=== PATIENT | female | born 1995 | race Caucasian/White ===

== ENCOUNTER 2020-08-18 08:26 | Inpatient (IN) ==
[2020-08-18] MEDS ORDERED: FAMOTIDINE 20 MG/2 ML VIAL IV ONE (08:31)
[2020-08-18] MEDS ORDERED: ceFAZolin 2,000 MG in PREMIX 1 EACH IV ONE (08:31)
[2020-08-18] MEDS ORDERED: CITRIC ACID/SODIUM CITRATE 30 ML UDCUP PO ONE (08:31)
[2020-08-18] MEDS ORDERED: OXYTOCIN/LR 30 UNIT/1,000 ML BAG IV ONE (08:33)
[2020-08-18] MEDS ORDERED: OXYTOCIN 10 UNIT/ML VIAL IM ONE (08:33)
[2020-08-18] MEDS ORDERED: LACTATED RINGERS 1,000 ML IV ONE (08:34)
[2020-08-18] MEDS ORDERED: LACTATED RINGERS 1,000 ML IV SCH (09:00)
[2020-08-18 09:06] LABS: Basophils % 0.1 % (0.0-0.8); Eosinophils # 0.1 10*3/uL (0.0-0.87); Eosinophils % 1.1 % (0.00-10.9); Hematocrit 38.4 VOL% (35.7-47.0); Hemoglobin 12.5 GM/DL (12.0-16.0); Immature Granulocytes % 0.6 %; Immature Granulocytes Absolute 0.07 #; Lymphocytes # 3.1 10*3/uL (1.4-4.0); Mean Corpuscular HGB Conc 32.6 GM/DL (32-36); Mean Corpuscular Volume 90.6 FL (87-102); Mean Platelet Volume 9.8 FL (9.6-12.0); Monocytes % 8.5 % (1.7-12.7); Neutrophils % 61.7 % (38.7-73.9); Platelet Count 371 T/CUMM (130-400); Red Blood Count 4.24 MC/CUMM (3.8-5.5); Red Cell Distribution Width 15.7 % (9.3-17.3); White Blood Count 10.9 T/CUMM (4-12)
[2020-08-18] MEDS ORDERED: ONDANSETRON 4 MG/2 ML VIAL IV ONE (09:30)
[2020-08-18] MEDS ORDERED: MEPERIDINE 50 MG/1 ML VIAL IV ONE (09:30)
[2020-08-18 12:52] LABS: HIV Antigen/Antibody Result Nonreactive (Nonreactive); Hepatitis B Surface Ag Quant < 0.10 Index; Hepatitis B Surface Ag Result Negative (Negative)
[2020-08-18] MEDS ORDERED: DEXAMETHASONE 4 MG/1 ML VIAL ONE (14:00)
[2020-08-18] MEDS ORDERED: BUPIVACAINE MPF 0.5% /EPI 30 ML VIAL ONE ×2 (14:00→14:30)
[2020-08-18] MEDS ORDERED: BUPIVACAINE SPINAL 0.75% 2 ML AMP SPINAL ONE ×2 (14:00→14:30)
[2020-08-18] MEDS ORDERED: fentaNYL 100 MCG/2 ML VIAL ONE (14:00)
[2020-08-18] MEDS ORDERED: ONDANSETRON 4 MG/2 ML VIAL ONE (14:00)
[2020-08-18] MEDS ORDERED: MORPHINE 10 MG/10 ML VIAL ONE (14:00)
[2020-08-18] MEDS ORDERED: PHENYLEPHRINE 1 MG/10 ML SYRINGE IV ONE (14:00)
[2020-08-18] MEDS ORDERED: GLYCOPYRROLATE 0.4 MG/2 ML VIAL ONE (14:19)
[2020-08-18] MEDS ORDERED: BUPIVACAINE MPF 0.25% 30 ML VIAL ONE ×2 (14:30→14:31)
[2020-08-18 14:58] LABS: Cord Arterial Blood HCO3 24.7 MMOL/L
[2020-08-18 15:01] LABS: Cord Venous Blood HCO3 25.2 MMOL/L; Cord Venous Blood PCO2 49.5 MMHG
[2020-08-18 15:04] LABS: Cord Venous Blood PO2 18.8 MMHG
[2020-08-18] MEDS ORDERED: OXYTOCIN/LR 20 UNIT/1,000 ML BAG IV ONE (17:26)
[2020-08-18] MEDS: oxyCODONE/ACETAMINOPHEN 5-325 MG TABLET PO PRN (19:43)
[2020-08-18] MEDS ORDERED: SIMETHICONE CHEW 80 MG TABLET PO PRN (19:49)
[2020-08-18] MEDS ORDERED: ACETAMINOPHEN 325 MG TABLET PO PRN (19:49)
[2020-08-18] MEDS ORDERED: RHO(D) IMMUNE GLOBULIN 300 MCG SYRINGE IM ONE (19:49)
[2020-08-18] MEDS: DOCUSATE SODIUM 100 MG CAPSULE PO SCH (20:39)
[2020-08-18] MEDS: ceFAZolin 1,000 MG in SYRINGE 1 EACH IV SCH (21:53)
[2020-08-18 22:49] LABS: Basophils % 0.1 % (0.0-0.8); Hematocrit 30.2 VOL% (35.7-47.0); Immature Granulocytes % 0.7 %; Immature Granulocytes Absolute 0.14 #; Lymphocytes # 1.7 10*3/uL (1.4-4.0); Lymphocytes % 8.6 % (21.3-54.2); Mean Corpuscular HGB Conc 33.1 GM/DL (32-36); Mean Corpuscular Volume 89.9 FL (87-102); Monocytes % 5.4 % (1.7-12.7); Neutrophils % 85.2 % (38.7-73.9); Platelet Count 307 T/CUMM (130-400); Red Blood Count 3.36 MC/CUMM (3.8-5.5); Red Cell Distribution Width 15.6 % (9.3-17.3); White Blood Count 19.7 T/CUMM (4-12)
[2020-08-19] MEDS ORDERED: diphenhydrAMINE CAP 25 MG CAPSULE PO PRN (01:40)
[2020-08-19] MEDS: ceFAZolin 1,000 MG in SYRINGE 1 EACH IV SCH (06:01)
[2020-08-19] MEDS: IBUPROFEN 800 MG TABLET PO PRN ×3 (06:04→20:15)
[2020-08-19] MEDS: oxyCODONE/ACETAMINOPHEN 5-325 MG TABLET PO PRN ×2 (06:18→18:22)
[2020-08-19 06:21] LABS: Basophils % 0.1 % (0.0-0.8); Eosinophils # 0.1 10*3/uL (0.0-0.87); Eosinophils % 0.3 % (0.00-10.9); Hematocrit 27.9 VOL% (35.7-47.0); Hemoglobin 9.6 GM/DL (12.0-16.0); Immature Granulocytes % 0.5 %; Lymphocytes % 16.3 % (21.3-54.2); Mean Corpuscular HGB Conc 34.4 GM/DL (32-36); Mean Platelet Volume 9.6 FL (9.6-12.0); Neutrophils % 74.8 % (38.7-73.9); Platelet Count 276 T/CUMM (130-400); Red Blood Count 3.17 MC/CUMM (3.8-5.5); Red Cell Distribution Width 15.5 % (9.3-17.3); White Blood Count 18.3 T/CUMM (4-12)
[2020-08-19] MEDS: METOCLOPRAMIDE 10 MG TABLET PO SCH ×3 (08:05→23:33)
[2020-08-19] MEDS: MULTIVITAMIN (PRENATAL) TABLET PO SCH (09:10)
[2020-08-19] MEDS: DOCUSATE SODIUM 100 MG CAPSULE PO SCH ×2 (09:10→20:14)
[2020-08-19] MEDS: FERROUS SULFATE 325 MG TABLET PO SCH (20:15)
[2020-08-19] MEDS: MAGNESIUM HYDROXIDE SUSP 30 ML UDCUP PO PRN (20:15)
[2020-08-20] MEDS: oxyCODONE/ACETAMINOPHEN 5-325 MG TABLET PO PRN (03:37)
[2020-08-20] MEDS: IBUPROFEN 800 MG TABLET PO PRN ×2 (03:37→10:42)
[2020-08-20 07:09] VITALS: BP 95/51
[2020-08-20] MEDS: MULTIVITAMIN (PRENATAL) TABLET PO SCH (08:39)
[2020-08-20] MEDS: METOCLOPRAMIDE 10 MG TABLET PO SCH (08:39)
[2020-08-20] MEDS: DOCUSATE SODIUM 100 MG CAPSULE PO SCH (08:39)
[2020-08-20] MEDS: MAGNESIUM HYDROXIDE SUSP 30 ML UDCUP PO PRN (08:39)
[2020-08-20] MEDS: FERROUS SULFATE 325 MG TABLET PO SCH (08:40)
== END 2020-08-20 11:50 | disposition home or self-care (01) | DRG 540 ==
LOC: N.LD 08:26 → N.OB 20:45
PROVIDERS: ADMIT Obstetrics & Gynecology; ATTEND Obstetrics & Gynecology
PROC: LDCSECT (ICD-10-PCS; 2020-08-18 14:00)

== ENCOUNTER 2022-04-16 02:26 | Inpatient (IN) ==
[2022-04-16 03:54] LABS: Mucus,Urine Many /LPF (Occasional); Squamous Epithelial Cell,Urine Occasional /HPF (0-10)
[2022-04-16 03:55] LABS: Bilirubin,Urine Small mg/dL (Negative); Blood, Urine Negative (Negative); Glucose,Urine (UA) Negative (Negative); Ketones,Urine 80 mg/dL (Negative); Nitrite,Urine Negative (Negative); Protein,Urine 100 mg/dL (Negative); Urine Appearance Clear (Clear); Urine Color Yellow (Yellow)
[2022-04-16] MEDS ORDERED: MEPERIDINE 50 MG/1 ML VIAL IV ONE (04:05)
[2022-04-16] MEDS ORDERED: LACTATED RINGERS 1,000 ML IV ONE (04:05)
[2022-04-16] MEDS ORDERED: ONDANSETRON 4 MG/2 ML VIAL IV ONE (04:05)
[2022-04-16] MEDS ORDERED: PROMETHAZINE 25 MG/1 ML VIAL IM ONE (05:38)
[2022-04-16] MEDS ORDERED: CARBOPROST TROMETHAMINE 250 MCG/ML AMP IM PRN (08:35)
[2022-04-16] MEDS ORDERED: CITRIC ACID/SODIUM CITRATE 30 ML UDCUP PO ONE (08:35)
[2022-04-16] MEDS ORDERED: METHYLERGONOVINE 0.2 MG/1 ML AMP IM PRN (08:35)
[2022-04-16] MEDS ORDERED: miSOPROStoL 200 MCG TABLET RECTAL PRN (08:35)
[2022-04-16] MEDS ORDERED: OXYTOCIN/LR 20 UNIT/1,000 ML BAG IV ONE ×3 (08:35→12:50)
[2022-04-16] MEDS ORDERED: ceFAZolin 2,000 MG/50 ML DUPLEX IV ONE (08:35)
[2022-04-16] MEDS ORDERED: FAMOTIDINE 20 MG/2 ML VIAL IV ONE (08:35)
[2022-04-16] MEDS ORDERED: TRANEXAMIC ACID 1,000 MG in SODIUM CHLORIDE 0.9% 100 ML IV PRN (08:35)
[2022-04-16] MEDS ORDERED: OXYTOCIN/LR 30 UNIT/1,000 ML BAG IV ONE (08:50)
[2022-04-16] MEDS ORDERED: LACTATED RINGERS 1,000 ML IV SCH ×4 (09:00→13:00)
[2022-04-16 09:20] LABS: Basophils % 0.1 % (0.0-0.8); Eosinophils % 0.3 % (0.00-10.9); Hematocrit 38.2 VOL% (35.7-47.0); Hemoglobin 12.6 GM/DL (12.0-16.0); Immature Granulocytes % 0.7 %; Lymphocytes # 2.6 10*3/uL (1.4-4.0); Lymphocytes % 17.5 % (21.3-54.2); Mean Corpuscular Volume 94.3 FL (87-102); Monocytes # 0.9 10*3/uL (0.11-0.8); Monocytes % 6.2 % (1.7-12.7); Neutrophils % 75.2 % (38.7-73.9); Platelet Count 295 T/CUMM (130-400); Red Blood Count 4.05 MC/CUMM (3.8-5.5); Red Cell Distribution Width 14.6 % (9.3-17.3); White Blood Count 14.9 T/CUMM (4-12)
[2022-04-16 09:33] LABS: Barbiturates Screen,Urine Negative (Negative); Benzodiazepines Screen,Urine Negative (Negative); Cannabinoid Screen,Urine Positive (Negative); Opiate Screen,Urine Negative (Negative); Phencyclidine Screen,Urine Negative (Negative)
[2022-04-16] MEDS ORDERED: miSOPROStoL 200 MCG TABLET ONE (09:56)
[2022-04-16] MEDS ORDERED: OXYTOCIN 10 UNIT/ML VIAL ONE (09:56)
[2022-04-16] MEDS ORDERED: OXYTOCIN 10 UNIT/ML VIAL IM ONE (09:56)
[2022-04-16] MEDS ORDERED: CARBOPROST TROMETHAMINE 250 MCG/ML AMP IM ONE (09:57)
[2022-04-16] MEDS ORDERED: METHYLERGONOVINE 0.2 MG/1 ML AMP ONE (09:57)
[2022-04-16] MEDS ORDERED: ONDANSETRON 4 MG/2 ML VIAL ONE (10:26)
[2022-04-16] MEDS ORDERED: buprenorphine HCL 0.3 MG/ML VIAL ONE (10:26)
[2022-04-16] MEDS ORDERED: BUPIVACAINE SPINAL 0.75% 2 ML AMP SPINAL ONE (10:26)
[2022-04-16] MEDS ORDERED: GLYCOPYRROLATE 0.4 MG/2 ML VIAL ONE (10:50)
[2022-04-16] MEDS ORDERED: KETOROLAC 30 MG/1 ML VIAL ONE (10:50)
[2022-04-16] MEDS ORDERED: PHENYLEPHRINE 1 MG/10 ML SYRINGE IV ONE (10:50)
[2022-04-16] MEDS ORDERED: propofoL 200 MG/20 ML VIAL IV ONE (11:07)
[2022-04-16 11:10] LABS: Cord Arterial Blood HCO3 22.3 MMOL/L
[2022-04-16] MEDS ORDERED: MEPERIDINE 50 MG/1 ML VIAL IV PRN (11:11)
[2022-04-16 11:12] LABS: Bacteria,Urine Occasional /HPF (Few); Mucus,Urine Occasional /LPF (Occasional); RBC,Urine 14 /HPF (0-4); Squamous Epithelial Cell,Urine Occasional /HPF (0-10)
[2022-04-16 11:12] LABS: Cord Venous Blood HCO3 23.2 MMOL/L; Cord Venous Blood PCO2 46.3 MMHG; Cord Venous Blood PO2 31.5
[2022-04-16 11:13] LABS: Bilirubin,Urine Negative (Negative); Blood, Urine Small mg/dL (Negative); Glucose,Urine (UA) Negative (Negative); Ketones,Urine Negative (Negative); Nitrite,Urine Negative (Negative); Protein,Urine Negative (Negative); Urine Appearance Clear (Clear); Urine Color Yellow (Yellow)
[2022-04-16 11:14] LABS: Urine Urobilinogen 0.2 eU/dL (<2.0)
[2022-04-16] MEDS ORDERED: OXYTOCIN/LR 20 UNIT/1,000 ML BAG IV SCH (11:34)
[2022-04-16] MEDS ORDERED: RHO(D) IMMUNE GLOBULIN 300 MCG SYRINGE IM ONE ×2 (12:48→12:50)
[2022-04-16] MEDS ORDERED: ACETAMINOPHEN 325 MG TABLET PO PRN ×2 (12:48→12:50)
[2022-04-16] MEDS ORDERED: MAGNESIUM HYDROXIDE SUSP 30 ML UDCUP PO PRN (12:48)
[2022-04-16] MEDS ORDERED: ONDANSETRON 4 MG/2 ML VIAL IV PRN ×2 (12:48→12:50)
[2022-04-16] MEDS ORDERED: IBUPROFEN 800 MG TABLET PO PRN ×2 (12:48→12:50)
[2022-04-16] MEDS ORDERED: SIMETHICONE CHEW 80 MG TABLET PO PRN (12:50)
[2022-04-16] MEDS ORDERED: ACETAMINOPHEN 500 MG TABLET PO SCH (13:00)
[2022-04-16] MEDS ORDERED: KETOROLAC 30 MG/1 ML VIAL IV SCH (18:00)
[2022-04-16] MEDS: KETOROLAC 30 MG/1 ML VIAL IV SCH (19:47)
[2022-04-16 20:53] LABS: Basophils % 0.1 % (0.0-0.8); Eosinophils # 0.1 10*3/uL (0.0-0.87); Eosinophils % 0.9 % (0.00-10.9); Hematocrit 34.8 VOL% (35.7-47.0); Hemoglobin 11.5 GM/DL (12.0-16.0); Immature Granulocytes % 0.5 %; Immature Granulocytes Absolute 0.08 #; Lymphocytes # 2.7 10*3/uL (1.4-4.0); Lymphocytes % 16.8 % (21.3-54.2); Mean Corpuscular Volume 93.5 FL (87-102); Monocytes # 1.2 10*3/uL (0.11-0.8); Monocytes % 7.4 % (1.7-12.7); Neutrophils % 74.3 % (38.7-73.9); Platelet Count 247 T/CUMM (130-400); Red Blood Count 3.72 MC/CUMM (3.8-5.5); Red Cell Distribution Width 14.4 % (9.3-17.3); White Blood Count 15.8 T/CUMM (4-12)
[2022-04-16] MEDS ORDERED: DOCUSATE SODIUM 100 MG CAPSULE PO SCH (21:00)
[2022-04-16] MEDS: DOCUSATE SODIUM 100 MG CAPSULE PO SCH (21:39)
[2022-04-16] MEDS: ACETAMINOPHEN 500 MG TABLET PO SCH (22:23)
[2022-04-17] MEDS ORDERED: HydrOXYzine PAMOATE 25 MG CAPSULE PO PRN (00:16)
[2022-04-17] MEDS: KETOROLAC 30 MG/1 ML VIAL IV SCH ×2 (02:07→07:48)
[2022-04-17] MEDS: ACETAMINOPHEN 500 MG TABLET PO SCH ×2 (04:42→07:05)
[2022-04-17 05:28] LABS: Basophils % 0.2 % (0.0-0.8); Eosinophils # 0.2 10*3/uL (0.0-0.87); Eosinophils % 1.5 % (0.00-10.9); Immature Granulocytes % 0.6 %; Immature Granulocytes Absolute 0.08 #; Lymphocytes # 2.9 10*3/uL (1.4-4.0); Lymphocytes % 21.6 % (21.3-54.2); Mean Corpuscular HGB Conc 33.3 GM/DL (32-36); Mean Corpuscular Volume 94.6 FL (87-102); Mean Platelet Volume 10.6 FL (9.6-12.0); Monocytes # 1.1 10*3/uL (0.11-0.8); Monocytes % 8.1 % (1.7-12.7); Platelet Count 258 T/CUMM (130-400); Red Blood Count 3.49 MC/CUMM (3.8-5.5); Red Cell Distribution Width 14.6 % (9.3-17.3); White Blood Count 13.6 T/CUMM (4-12)
[2022-04-17] MEDS ORDERED: MULTIVITAMIN (PRENATAL) TABLET PO SCH (09:00)
[2022-04-17] MEDS: MAGNESIUM HYDROXIDE SUSP 30 ML UDCUP PO PRN ×2 (09:46→19:34)
[2022-04-17] MEDS: METOCLOPRAMIDE 10 MG TABLET PO SCH ×3 (09:47→23:48)
[2022-04-17] MEDS: SIMETHICONE CHEW 80 MG TABLET PO PRN ×2 (09:47→19:34)
[2022-04-17] MEDS: DOCUSATE SODIUM 100 MG CAPSULE PO SCH ×3 (09:47→21:33)
[2022-04-17] MEDS: MULTIVITAMIN (PRENATAL) TABLET PO SCH (09:47)
[2022-04-18] MEDS: IBUPROFEN 800 MG TABLET PO PRN ×2 (02:06→06:12)
[2022-04-18 08:49] VITALS: BP 130/82
[2022-04-18] MEDS: DOCUSATE SODIUM 100 MG CAPSULE PO SCH (09:06)
[2022-04-18] MEDS: MULTIVITAMIN (PRENATAL) TABLET PO SCH (09:06)
[2022-04-18] MEDS: METOCLOPRAMIDE 10 MG TABLET PO SCH (09:06)
== END 2022-04-18 11:00 | disposition home or self-care (01) | DRG 540 ==
LOC: N.LDOUT 02:26 → N.LD 02:29 → N.OB 13:50
PROVIDERS: ADMIT Obstetrics & Gynecology; ATTEND Obstetrics & Gynecology
PROC: LDCSECT (ICD-10-PCS; 2022-04-16 10:00)